=== PATIENT | female | born 1960 | race Caucasian/White ===

== ENCOUNTER 2016-12-30 23:41 | Emergency (ER) | payer BC, MEDICARE ==
[2016-12-30] MEDS ORDERED: PROPARACAINE HCL OPTH 15ML BTL OPTH ONE (23:51)
[2016-12-30] MEDS ORDERED: POLYMYXIN B SULF/TRIMETHOPRIM 10ML BTL OPTH ONE (23:51)
[2016-12-31] MEDS ORDERED: OFLOXACIN 0.3% 5 ML OPTH SOLN OPTH ONE (00:05)
--- NOTE | 2016-12-31 00:05 | Emergency Department Record ---
History of Present Illness - General Chief complaint: Eye Problem Stated complaint: FB IN RT EYE Time Seen by Provider: 12/30/16 23:46 Source: Patient, Family Mode of Arrival: Ambulatory Limitations: No limitations - History of Present Illness Initial comments: 56 yo female presents with right eye irritation since mowing today. She states it was windy and she thinks lawn debris or dirt might have gotten into the eye. Throughout the day the right lid has become swollen and the eye itches. She wears glasses. She is followed by RAMONA hicks Gur[place]Eun MITCHELL chief complaint: Eye redness, Foreign body -: Hour(s) (12) Onset Description: Gradual Location: Right eye Place: Home If Injury: Other (possible debris from mowing) Eye Symptoms: Decreased vision, Foreign body sensation, Itching Severity: Moderate Consistency: Constant Associated Symptoms: None - Related Data Home Medications Medication Instructions Recorded Confirmed Last Taken Albuterol Sulfate [Proair Hfa] 1 - 2 puff INH ASDIR 03/19/15 12/31/16 03/19/15 Captopril [Capoten] 25 mg PO DAILY 03/19/15 12/31/16 12/30/16 Guanfacine HCl [Tenex] 5 mg PO DAILY 03/19/15 12/31/16 12/30/16 Montelukast Sodium [Singulair] 10 mg PO DAILY 03/19/15 12/31/16 12/30/16 Fluticasone Propionate [Flonase] 2 spray EACH NARES DAILY 12/31/16 12/31/1601/10 Previous Rx's Medication Instructions Recorded Cephalexin [Keflex] 500 mg PO TID #21 cap 12/31/16 Allergies Allergy/AdvReac Type Severity Reaction Status Date / Time chlorzoxazone Allergy HIVES Verified 03/19/15 19:32 [From Parafon Forte] glycerin Allergy DIFFICULTY Verified 03/19/15 19:32 SWALLOWING phenol Allergy DIFFICULTY Verified 03/19/15 19:41 SWALLOWING pseudoephedrine HCl Allergy BEHAVIORAL Verified 03/19/15 19:32 [From Sudafed] CHANGES Sulfa (Sulfonamide Allergy HIVES Verified 03/19/15 19:32 Antibiotics) Review of Systems Constitutional: Denies: Chills, Fever, Weakness Eyes: Reports: Eye discharge (clear tears) ENT: Denies: Congestion, Epistaxis, Throat pain Respiratory: Denies: Cough Cardiovascular: Denies: Syncope Endocrine: Denies: Fatigue Gastrointestinal: Denies: Diarrhea, Nausea, Vomiting Genitourinary: Denies: Dysuria, Frequency Musculoskeletal: Denies: Arthralgia, Back pain, Neck pain Skin: Denies: Bruising, Change in color, Rash Neurological: Denies: Headache Psychiatric: Denies: Anxiety Hematological/Lymphatic: Denies: Easy bleeding, Easy bruising, Swollen glands Past Medical History - SOCIAL HISTORY Smoking Status: Never smoker - RESPIRATORY Hx Respiratory Disorders: Yes Hx Asthma: Yes - CARDIOVASCULAR Hx Cardio Disorders: Yes Comment:: b9 murmur - NEURO Hx Neuro Disorders: No - GI Hx GI Disorders: No - Hx Genitourinary Disorders: No - ENDOCRINE Hx Endocrine Disorders: No - MUSCULOSKELETAL Hx Musculoskeletal Disorders: Yes Hx Arthritis: Yes Hx Fibromyalgia: Yes - PSYCH Hx Psych Problems: No - HEMATOLOGY/ONCOLOGY Hx Hematology/Oncology Disorders: No Family Medical History Hx Cancer: Mother Hx Diabetes: Father, Mother Hx Heart Disease: Father Physical Exam - General General Appearance: Alert, Oriented x3, Cooperative, No acute distress - Head Head exam: Normal inspection - Eye Eye exam: Normal appearance, Conjunctival injection, EOMI, Periorbital swelling (slight lid swelling upper more that lower). negative: Nystagmus, Periorbital tenderness, Scleral icterus Pupils: Normal accommodation. negative: Irregular, Unequal - ENT ENT exam: Normal exam Ear exam: Normal external inspection Nasal Exam: Normal inspection Mouth exam: Normal external inspection Teeth exam: Normal inspection Throat exam: Tonsillar erythema. negative: Tonsillomegaly, Tonsillar exudate, L peritonsillar mass - Neck Neck exam: Normal inspection. negative: Lymphadenopathy - Respiratory Respiratory exam: Normal lung sounds bilaterally. negative: Respiratory distress, Rhonchi, Wheezes - Cardiovascular Cardiovascular Exam: Regular rate, Normal rhythm, Normal heart sounds - GI/Abdominal GI/Abdominal exam: Soft. negative: Tenderness - Rectal Rectal exam: Deferred - exam: Deferred - Extremities Extremities exam: Normal inspection, Full ROM, Normal capillary refill. negative: Pedal edema, Tenderness - Back Back exam: Reports: Normal inspection, Full ROM. Denies: Muscle spasm, Rash noted, Tenderness - Neurological Neurological exam: Alert, Normal gait, Oriented X3 - Psychiatric Psychiatric exam: Normal affect, Normal mood. negative: Agitated, Anxious - Skin Skin exam: Dry, Intact, Normal color, Warm Course - Reevaluation(s) Reevaluation #1: Stain was applied The eye was examined with the wood's lamp The eye was examined under magnification with the slit lamp No visible FB was seen The AC was clear without cell or flare Mild diffuse injection There were two areas of uptake at the 10 and 12 o'clock positions superior iris area. No streaming. Ofloxacin drops provided in the ED 12/31/16 00:07 Disposition Disposition: Discharge Clinical Impression: Corneal abrasion, right Qualifiers: Encounter type: initial encounter Qualified Code(s): S05.01XA - Injury of conjunctiva and corneal abrasion without foreign body, right eye, initial encounter Disposition: Home, Self-Care Condition: (1) Good Instructions: Corneal Abrasion (ED), Pharyngitis (ED) Additional Instructions: Call your eye doctor to be seen tomorrow to recheck the eye Take the Ofloxacin 2 drops every 4 hours Prescriptions: Cephalexin [Keflex] 500 mg PO TID #21 cap Forms: Patient Portal Access Time of Disposition: 00:11
[2016-12-31] MEDS: CEPHALEXIN 500 MG CAPSULE PO STA ×2 (00:18→00:31)
[2016-12-31] MEDS: DEXAMETHASONE 4 MG/ML 1ML VIAL PO ONE ×2 (00:32→00:36)
== END 2016-12-31 00:51 | disposition home or self-care (01) ==
LOC: ER 23:41
DX: S05.01XA Injury of conjunctiva and corneal abrasion without foreign body, right eye, initial encounter (principal); J02.9 Acute pharyngitis, unspecified
CPT/HCPCS: 99283